=== PATIENT | male | born 1950 | race American Indian/Alaskan Native ===

== ENCOUNTER 2021-08-13 11:43 | Emergency (ER) | payer OTHER ==
[2021-08-13 12:06] VITALS: BP 158/93; PULSE 81; TEMP 97.9; BMI 28.5
[2021-08-13] MEDS ORDERED: KETOROLAC TROMETHAMINE 15 MG/ML VIAL IM ONE (12:29)
[2021-08-13] MEDS ORDERED: KETOROLAC TROMETHAMINE 15 MG/ML VIAL ONE (12:31)
== END 2021-08-13 12:44 | disposition home or self-care (01) ==
LOC: JERFT 11:43 → JER 11:43 → JERFT 12:44
PROC: 3E0233Z Introduction of Anti-inflammatory into Muscle, Percutaneous Approach (ICD-10-PCS; principal; 2021-08-13)
DX: M54.50 Low back pain, unspecified (principal); V49.40XA Driver injured in collision with unspecified motor vehicles in traffic accident, initial encounter
CPT/HCPCS: 99284-25